=== PATIENT | born 2000 ===

== ENCOUNTER 2025-02-09 16:26 | Outpatient (REF) | payer SELFPAY ==
[2025-02-09 18:31] LABS: HIV 1/2 Ab Rapid Negative
[2025-02-10 19:30] LABS: HIV-1/2 Ag & Ab Screen Negative (Negative)
[2025-02-10 21:01] LABS: Hepatitis C Ab w Rflx HCV PCR Negative (Negative)
== END 2025-02-09 16:27 | disposition home or self-care (01) ==
LOC: LBO 16:26
DX: Z11.4 Encounter for screening for human immunodeficiency virus [HIV] (principal); Z11.59 Encounter for screening for other viral diseases
CPT/HCPCS: 36415; 86803; 87340; 87389